=== PATIENT | male | born 1995 | race Caucasian/White ===

== ENCOUNTER 2018-09-14 20:18 | Emergency (ER) | payer SELFPAY | END 2018-09-14 21:09 | disposition left against medical advice (07) | LOC: ED 20:18 | DX: Z53.21 Procedure and treatment not carried out due to patient leaving prior to being seen by health care provider (principal) ==

== ENCOUNTER 2020-04-28 19:10 | Emergency (ER) | payer OTHER ==
[~2020-04-28] VITALS: Ht 175.3 cm; Wt 91.2 kg
[2020-04-28 19:15] VITALS: Ht 175.3 cm; Wt 91.2 kg
[2020-04-28 22:23] VITALS: BP 119/71
== END 2020-04-28 22:24 | disposition home or self-care (01) ==
LOC: ED 19:10
DX: R51 Headache (principal); S50.812A Abrasion of left forearm, initial encounter; S50.811A Abrasion of right forearm, initial encounter; R10.30 Lower abdominal pain, unspecified; V49.49XA Driver injured in collision with other motor vehicles in traffic accident, initial encounter; Y93.I9 Activity, other involving external motion; Y92.411 Interstate highway as the place of occurrence of the external cause; Y99.8 Other external cause status
CPT/HCPCS: Q0092